=== PATIENT | female | born 1950 | race Hispanic/Latino ===

== ENCOUNTER 2017-07-31 10:26 | Outpatient (CLI) | payer MEDICARE ==
[2017-07-31 11:39] LABS: #Basophils 0.1 thou/uL (0.0-0.2); #Eosinphils 0.2 thou/uL (0.0-0.7); #Lymphocytes 1.5 thou/uL (1.20-3.40); #Monocytes 0.5 thou/uL (0.11-0.59); #Neutrophils 5.8 thou/uL (1.40-6.50); %Basophils 0.7 % (0.0-1.0); %Eosinophils 2.7 % (0.0-10.0); %Lymphocytes 18.8 % (21.0-51.0); %Neutrophils 71.8 % (42.0-75.0); Hemoglobin 11.5 g/dL (12.0-16.0); Mean Corpuscular HGB CONC 32.5 g/dL (32.0-36.0); Mean Corpuscular Hemoglobin 30.3 pg (27.0-31.0); Mean Corpuscular Volume 93.1 fl (81.0-99.0); Mean Platelet Volume 7.6 fL (7.4-10.4); Platelet Count 323 thou/uL (130-400); Red Blood Cell (RBC) Count 3.81 mill/uL (4.20-5.40); White Blood Cell (WBC) Count 8.1 thou/uL (4.8-10.8)
[2017-07-31 11:55] LABS: Anion Gap 10 mmol/L (10-20); BUN (Urea Nitrogen) 18 mg/dL (9.8-20.1); Calc. Creatinine Clearance 0 mL/min (70-130); Calcium 8.4 mg/dL (7.8-10.44); Carbon Dioxide 27 mmol/L (23-31); Chloride 108 mmol/L (98-107); Estimated GFR-MDRD 70; Glucose 175 mg/dL (80-115); Potassium 4.5 mmol/L (3.5-5.1); Sodium 140 mmol/L (136-145)
== END 2017-07-31 10:27 | disposition home or self-care (01) ==
LOC: LABBT 10:26
PROVIDERS: ATTEND Surgery
DX: Z01.812 Encounter for preprocedural laboratory examination (principal); K43.2 Incisional hernia without obstruction or gangrene
CPT/HCPCS: 80048; 85025

== ENCOUNTER 2017-08-08 11:25 | Day surgery (SDC) | payer MEDICARE ==
[2017-07-31 11:01] VITALS: BMI 23.8
[2017-08-08] MEDS ORDERED: CEFAZOLIN/Water 2 GM/20 ML SYRINGE ONE (11:44)
[2017-08-08] MEDS ORDERED: Midazolam HCl 2 mg/2 ml Vial ONE (13:12)
[2017-08-08] MEDS ORDERED: Fentanyl 250 MCG/5 ML VIAL ONE ×2 (13:18→16:51)
[2017-08-08] MEDS ORDERED: Bupivacaine/Epinephrine 0.25% 30 ML VIAL ONE (13:19)
[2017-08-08] MEDS ORDERED: hydrALAZINE 20 MG/ML VIAL ONE (16:06)
[2017-08-08] MEDS ORDERED: Ondansetron HCl/PF 4 MG/2 ML Vial ONE (18:34)
[2017-08-08] MEDS ORDERED: HYDROcodone/Acetaminophen 5/325 mg Tablet ONE (18:47)
[2017-08-08] MEDS ORDERED: Ketorolac Tromethamine 30 MG/ML VIAL ONE (19:33)
--- NOTE | 2017-08-08 21:58 | OP ---
PREOPERATIVE DIAGNOSIS: Incisional hernia. POSTOPERATIVE DIAGNOSIS: Incisional hernia. PROCEDURE PERFORMED: Incisional hernia repair with mesh, Symbotex, 12 cm. SURGEON: Boone Davenport M.D. ANESTHESIA: General. ESTIMATED BLOOD LOSS: Minimal. COMPLICATIONS: None. FINDINGS: Hernia at the former colostomy site and in the midline of the previous incision. TECHNIQUE: The patient was taken to the operating room and laid supine on the table. After general anesthetic was obtained, the Foster was placed. The abdomen was prepped and draped in a sterile fashi on. Left subcostal 12 mm Optiview trocar was placed in the usual fashion without injury and high-pernell w pneumoperitoneum was obtained. Right lateral subcostal 12 mm Ethicon trocar in right lower quadran t, 8 mm robot trocar, all placed under direct visualization. A few adhesions were taken down in the abdomen using sharp dissection only. All ports were docked to the robot. Surgeon goes to the consol e. Some adhesions were taken down in the abdomen in the area of the hernia using the sharp scissors. After the adhesions were taken down, the peritoneum was taken down to expose the edges of the fasci al defect in the left abdomen at location of previous hernia. This was very close to another hernia in the midline of the former midline incision. A #1 V-Loc was used to close the fascial defect prima rily. A second short V-Loc was used to close the midline incisional defect. A 12 cm piece of Symbot ex mesh was brought in to the abdominal cavity and held to the posterior abdominal wall using the nee dle from the previous closure. A 3-0 bidirectional double arm Stratafix was used to sew the mesh to the posterior fascia circumferentially. This covered both the colostomy and the midline defects. Th e nonadherent surface of the mesh was placed anterior against the posterior fascia, centered over the closure defects. There was no injury to any intraabdominal structures. All needles were withdrawn from the abdomen and accounted for. GraNee needle was used to close the fascial defect from the 12-m m trocar site. All port sites were infiltrated using local anesthetic. All ports are closed using 4 -0 Monocryl and Dermabond. The patient was en route to recovery in stable condition. All instrument counts, needle counts, lap counts were correct.
--- NOTE | 2017-08-09 17:41 | EKG ---
Test Reason : PREOP Blood Pressure : / mmHG Vent. Rate : 063 BPM Atrial Rate : 063 BPM P-R Int : 150 ms QRS Dur : 082 ms QT Int : 422 ms P-R-T Axes : 044 022 068 degrees QTc Int : 431 ms Normal sinus rhythm Normal ECG When compared with ECG of 07-JAN-2016 14:16, No significant change was found Confirmed by DR. Ronny BERNSTEIN ([id number]) on 08/09/2017 5:41:46 PM Referred By: TONY Confirmed By:DR. Ronny BERNSTEIN
== END 2017-08-08 19:50 | disposition home or self-care (01) ==
LOC: SDC 11:25
PROVIDERS: ATTEND Surgery
PROC: 0WUF4JZ Supplement Abdominal Wall with Synthetic Substitute, Percutaneous Endoscopic Approach (ICD-10-PCS; principal; 2017-08-08)
DX: K43.2 Incisional hernia without obstruction or gangrene (principal); I10 Essential (primary) hypertension; E11.3591 Type 2 diabetes mellitus with proliferative diabetic retinopathy without macular edema, right eye; Z79.82 Long term (current) use of aspirin; Z79.84 Long term (current) use of oral hypoglycemic drugs; Z79.899 Other long term (current) drug therapy; Z90.49 Acquired absence of other specified parts of digestive tract; Z98.890 Other specified postprocedural states
CPT/HCPCS: 93005; 93010; 96374; 96375; J0360; J1885; J2250; J2405; J3010

== ENCOUNTER 2018-03-07 14:23 | Outpatient (CLI) | payer MEDICARE ==
--- NOTE | 2018-03-07 18:06 | ULT ---
BILATERAL RENAL ULTRASOUND: Date: 03/07/18 HISTORY: Chronic kidney disease. Hypertension. COMPARISON: None. FINDINGS: Incidental gallstones are noted. Bilaterally, no hydronephrosis. Anechoic focus in the mid right renal pelvis, compatible with a parapelvic cyst measuring 1.1 x 1.2 x 1.2 cm. There is a second cyst in the lower pole of the left kidney measuring 1.2 x 0.9 x 0.8 cm. Right kidney measures 10.4 x 5.1 x 5.0 cm. Left kidney measures 10.5 x 5.6 x 5.7 cm. No obvious corti antoni masses. Urinary bladder is unremarkable. IMPRESSION: 1. Limited evaluation of the right kidney. No obvious solid or cortical masses. Left renal cysts are noted. 2. No evidence of hydronephrosis. 3. Sonographic evidence of cholelithiasis. Evaluation is incomplete. If there is concern for cholecy stitis, dedicated gallbladder ultrasound is recommended. POS: JOSEPHINE
== END 2018-03-07 14:24 | disposition home or self-care (01) ==
LOC: BICULT 14:23
PROVIDERS: ATTEND Internal Medicine Nephrology
DX: I12.9 Hypertensive chronic kidney disease with stage 1 through stage 4 chronic kidney disease, or unspecified chronic kidney disease (principal); N18.3 Chronic kidney disease, stage 3 (moderate); N28.1 Cyst of kidney, acquired; K80.20 Calculus of gallbladder without cholecystitis without obstruction
CPT/HCPCS: 76770

== ENCOUNTER 2019-01-02 09:43 | Day surgery (SDC) | payer MEDICARE ==
[2018-12-25 08:40] VITALS: BMI 23.4
[~2019-01-02 09:43] MED LIST: EPINEPHrine 0.3 MG in Ophthalmic Irrigation Solution 500 ML IVP SCH
[2019-01-02] MEDS ORDERED: Phenylephrine 2.5% Ophth Soln 5 ML BOT ONE (10:04)
[2019-01-02] MEDS ORDERED: Cyclopentolate 1% Opth Drop 2 ML BOT ONE (10:04)
[2019-01-02] MEDS ORDERED: PROPOFOL 20 ML ONE (12:14)
[2019-01-02] MEDS ORDERED: Midazolam HCl 2 mg/2 ml Vial ONE ×2 (12:14→12:21)
--- NOTE | 2019-01-02 14:20 | OP ---
DATE OF PROCEDURE: 01/02/2019 PREOPERATIVE DIAGNOSES: 1. Glaucoma, left eye. 2. Epiretinal membrane, tractional retinal detachment. POSTOPERATIVE DIAGNOSES: 1. Glaucoma, left eye. 2. Epiretinal membrane, tractional retinal detachment. PROCEDURE PERFORMED: Pars plana vitrectomy, membrane peel, tube shunt to external valve, scleral patch graft, left eye. ANESTHESIA: Local with monitored anesthesia care. PROCEDURE IN DETAIL: The patient was identified in the preoperative holding area. Appropriate informed consent for the planned surgical procedure on the left eye had been obtained. The patient was transported to the operative suite, where appropriate cardiopulmonary monitoring was established. Local anesthesia was obtained using retrobulbar or modified Van Lint lid block using 50:50 mixture of 4% lidocaine and 0.75% bupivacaine. The patient was prepped and draped in usual sterile manner for ophthalmic surgery. Left eye lid speculum was placed in the left eye. A 25-gauge trocar was placed in conjunctiva and sclera supratemporally, inferotemporally, supranasally. Infusion line was placed inferotemporally. Light pipe vitreous cutter inserted to the eye. Core vitrectomy was performed. Proliferans was present on the surface. Posterior hyaloid face was elevated and vitreous was peeled from the macula, and into the periphery, proliferative membranes were dissected from the retinal surface and peeled away from the nerve. Small area of proliferans inferiorly was left. There was no evidence of traction. Panretinal photocoagulation for a total of 812 spots was placed on non-macular areas of the retina and FP7 tube shunt was placed subconjunctivally, superior temporally, and introduced into the supratemporal sclerotomy 4 mm posterior to the limbus. Tutoplast patch graft was placed over the entry site of the tube and covered with conjunctiva. Conjunctiva was sutured closed with 6-0 plain gut suture. Retrobulbar Kenalog sequential Ancef was placed. Antibiotic ointment placed. Eye was patched and shielded. The patient was taken to postop recovery unit in good condition having suffered no immediate perioperative complications. The patient was instructed to keep patch and shield on, avoid lifting or bending. Followup appointment with Dr. Mendez. Job ID: [id number]
== END 2019-01-02 14:40 | disposition home or self-care (01) ==
LOC: SDC 09:43
PROVIDERS: ATTEND Ophthalmology Retina Specialist
PROC: 08T53ZZ Resection of Left Vitreous, Percutaneous Approach (ICD-10-PCS; principal; 2019-01-02)
PROC: 08NF3ZZ Release Left Retina, Percutaneous Approach (ICD-10-PCS; 2019-01-02)
PROC: 08133J4 Bypass Left Anterior Chamber to Sclera with Synthetic Substitute, Percutaneous Approach (ICD-10-PCS; 2019-01-02)
DX: H33.42 Traction detachment of retina, left eye (principal); H40.9 Unspecified glaucoma; H43.12 Vitreous hemorrhage, left eye; Z79.899 Other long term (current) drug therapy; Z98.890 Other specified postprocedural states
CPT/HCPCS: 66180; 67113; L8612; J0171; J2250; J2704

== ENCOUNTER 2019-03-06 15:12 | Outpatient (CLI) | payer MEDICARE ==
--- NOTE | 2019-03-07 08:49 | MMO ---
Bilateral MAMMO Bilat Screen [facility]DI[facility]UAN C. CLINICAL HISTORY: Patient is 68 years old and is seen for screening. The patient has no family history of breast cancer. The patient has no personal history of cancer. VIEWS: The views performed were: bilateral craniocaudal with tomosynthesis and bilateral mediolateral oblique with tomosynthesis. FILMS COMPARED: The present examination has been compared to a prior imaging study performed at [facility] on 05/23/2016. This study has been interpreted with the assistance of computer-aided detection. MAMMOGRAM FINDINGS: There are scattered fibroglandular densities. There are no suspicious masses, suspicious calcifications, or new areas of architectural distortion. IMPRESSION: THERE IS NO MAMMOGRAPHIC EVIDENCE OF MALIGNANCY. A ROUTINE FOLLOW-UP MAMMOGRAM IN 1 YEAR IS RECOMMENDED. THE RESULTS OF THIS EXAM WERE SENT TO THE PATIENT. ACR BI-RADS Category 1 - Negative MAMMOGRAPHY NOTE: 1. A negative mammogram report should not delay a biopsy if a dominant of clinically suspicious mass is present. 2. Approximately 10% to 15% of breast cancers are not detected by mammography. 3. Adenosis and dense breasts may obscure an underlying neoplasm. Reported by: Tyson ORELLANA Electonically Signed: [id number]
== END 2019-03-06 15:13 | disposition home or self-care (01) ==
LOC: BICMAMMO 15:12
PROVIDERS: ATTEND Family Medicine
DX: Z12.31 Encounter for screening mammogram for malignant neoplasm of breast (principal)
CPT/HCPCS: 77063; 77067

== ENCOUNTER 2019-03-09 20:01 | Inpatient (IN) | payer MEDICARE ==
[2019-03-09] MEDS ORDERED: Morphine 4 MG/ML VIAL ONE ×2 (20:43→21:30)
[2019-03-09 21:08] LABS: #Basophils 0.1 thou/uL (0.0-0.2); #Lymphocytes 1.8 thou/uL (1.20-3.40); #Monocytes 0.8 thou/uL (0.11-0.59); #Neutrophils 9.5 thou/uL (1.40-6.50); %Basophils 0.5 % (0.0-1.0); %Eosinophils 0.3 % (0.0-10.0); %Lymphocytes 14.4 % (21.0-51.0); %Monocytes 6.9 % (0.0-10.0); %Neutrophils 77.9 % (42.0-75.0); Hemoglobin 9.2 g/dL (12.0-16.0); Mean Corpuscular Hemoglobin 30.7 pg (27.0-31.0); Mean Corpuscular Volume 90.4 fL (78.0-98.0); Mean Platelet Volume 7.2 fL (7.4-10.4); Platelet Count 320 thou/uL (130-400); RBC Distribution Width 11.4 % (11.5-14.5); Red Blood Cell (RBC) Count 2.99 mill/uL (4.20-5.40); White Blood Cell (WBC) Count 12.2 thou/uL (4.8-10.8)
[2019-03-09 21:17] LABS: Prothrombin Time 13.4 SEC (12.0-14.7)
[2019-03-09 21:31] LABS: ALT (SGPT) 10 U/L (8-55); AST (SGOT) 15 U/L (5-34); Albumin 2.8 g/dL (3.4-4.8); Alkaline Phosphatase 129 U/L (40-110); Anion Gap 10 mmol/L (10-20); BUN (Urea Nitrogen) 38 mg/dL (9.8-20.1); Bilirubin, Total 0.3 mg/dL (0.2-1.2); Calc. Creatinine Clearance 0 mL/min (70-130); Calcium 7.7 mg/dL (7.8-10.44); Carbon Dioxide 25 mmol/L (23-31); Chloride 109 mmol/L (98-107); Estimated GFR-MDRD 40; Globulin 3.4 g/dL (2.4-3.5); Glucose 134 mg/dL (80-115); Potassium 3.7 mmol/L (3.5-5.1); Protein, Total 6.2 g/dL (6.0-8.3); Sodium 140 mmol/L (136-145)
--- NOTE | 2019-03-09 21:44 | RAD ---
PORTABLE CHEST: History: Fall. FINDINGS: Lungs are clear. Heart and mediastinum unremarkable. Osseous structures appear intact. IMPRESSION: No acute findings. POS: OFF
--- NOTE | 2019-03-09 21:45 | RAD ---
LEFT HIP TWO VIEWS: History: Fall with injury. IMPRESSION: Comminuted displaced intertrochanteric fracture left hip. POS: OFF
--- NOTE | 2019-03-09 21:45 | RAD ---
LEFT FEMUR FOUR VIEWS: History: Injury. Fall. FINDINGS: There is a comminuted displaced intertrochanteric fracture of the proximal left femur. The distal femur appears intact. IMPRESSION: Fracture proximal left femur. POS: OFF
--- NOTE | 2019-03-09 21:46 | RAD ---
LEFT TIBIA/FIBULA FOUR VIEWS: History: Fall with injury. FINDINGS: No evidence of acute fracture. IMPRESSION: No acute findings. POS: OFF
[2019-03-09] MEDS ORDERED: Acetaminophen 1,000 MG in Premix Bag 1 BAG IVPB SCH (23:00)
--- NOTE | 2019-03-09 23:54 | CON ---
DATE OF CONSULTATION: 03/09/2019 CHIEF COMPLAINT: Left hip pain. HISTORY OF PRESENT ILLNESS: Ms. Lee is a pleasant 68-year-old female with history of being legally blind and cataracts, who presents complaining of left hip pain. The patient fell today. She is ambulating. She is a household ambulator, predominantly fell because of her impaired eyesight. She had left hip pain this morning at about 1100 hours. She was brought in secondary to this increasing pain. The patient presents with her son at bedside. PAST MEDICAL HISTORY: Includes glaucoma, hyperlipidemia, high cholesterol, hypertension, diabetes, history of chronic UTIs. PAST SURGICAL HISTORY: Hysterectomy, colostomy, history of PICC line. MEDICATIONS: Include: 1. Losartan-hydrochlorothiazide. 2. Pravastatin. 3. Combigan. 4. Lumigan. ALLERGIES: NO KNOWN DRUG ALLERGIES. SOCIAL HISTORY: Nonsmoker, nondrinker. No alcohol. Lives with her . Her son is at bedside. REVIEW OF SYSTEMS: Noncontributory. PHYSICAL EXAMINATION: VITAL SIGNS: 155/66, 74, 19, 98.8 temp, pain 7 to 10/10, 98% on room air. GENERAL: Alert and oriented female, in no acute distress, resting comfortably in bed. EXTREMITIES: The patient's left lower extremity is short and externally rotated. She has no effusion. She has brisk cap refill. She has palpable dorsalis pedis. The patient's sensation and motor intact distally. Pain with external rotation of her hip. Pelvis stable. LABORATORY DATA: The patient's creatinine is 1.39. She has a glucose of 134. The patient's INR is 1. Her H and H are 9.2 and 27. The patient's x-rays of her tibia show no acute fracture, femur show osteopenia with a left three part intertrochanteric hip fracture. IMPRESSION: 1. Left intertrochanteric hip fracture. 2. Diabetes. 3. Anemia. 4. Hypertension. 5. Legally blind. 6. Legally blind/glaucoma. 7. Hypercholesterolemia. ASSESSMENT AND PLAN: The patient will need a short TFNA nail that will be performed tomorrow once medically cleared. The patient will be placed tomorrow in the afternoon. I discussed with the patient that she will receive antibiotics for. I have discussed the risks and benefits of surgery including pain, scar, bleeding, infection, damage to vital structures, decreased range of motion and strength, fracture above or below the implant, need for further surgeries, loss of mobility, loss of life, limb, and discussed mortality associated with hip fractures to include 37% in females. I discussed with the patient reduced level of ambulatory function. They understand these risks and benefits. The patient elects to proceed. We will proceed tomorrow once stabilized and cleared per Trauma. Job ID: [id number]
[2019-03-10] MEDS ORDERED: Dextrose 5% in Water 1,000 ML IV PRN (00:12)
[2019-03-10] MEDS ORDERED: Ondansetron ODT 4 MG TAB PO PRN (00:12)
[2019-03-10] MEDS ORDERED: Dextrose 50% Abboject 50 ML SYRINGE SLOW IVP PRN (00:12)
[2019-03-10] MEDS ORDERED: traMADol HCl 50 MG TAB PO PRN (00:12)
[2019-03-10] MEDS ORDERED: Morphine 2 MG/ML SYRINGE SLOW IVP PRN (00:12)
[2019-03-10] MEDS ORDERED: Insulin Regular 300 UNITS/3 ML VIAL SC PRN (00:17)
--- NOTE | 2019-03-10 00:59 | HP ---
This is Robin Aguero PA-C dictating a report for Elkin Jonathan Fields DO. REQUESTING PHYSICIAN: Dr. Solis. ATTENDING SURGEON: Dr. Fields. CONSULTATION: Orthopedics, Dr. Ohara. HISTORY OF PRESENT ILLNESS: The patient is a 68-year-old woman, who had a ground level fall today. Family reports that she does not use her walker and that she is legally blind due to cataracts that she likely tripped over something in her house. She was brought to the emergency department by ground EMS, and underwent evaluation and examination and was noted to have a left hip fracture at which time we were asked to evaluate the patient for admission and obtain Orthopedic consultations. ALLERGIES: NONE. CURRENT MEDICATIONS: 1. Losartan-hydrochlorothiazide. 2. Pravastatin. 3. Combigan. 4. Lumigan. PAST MEDICAL HISTORY: Glaucoma, cataracts, hyperlipidemia, diabetes, hypertension. SURGICAL HISTORY: Hysterectomy, colostomy. SOCIAL HISTORY: The patient lives with her spouse at home. Denies drug, tobacco, or alcohol use. REVIEW OF SYSTEMS: 10-point review of systems is negative as otherwise stated. PHYSICAL EXAMINATION: VITAL SIGNS: Blood pressure 178/72, heart rate 72, respirations 18, oxygen saturations 98% on room air, and temperature is 98.8. GENERAL: The patient is resting comfortably in bed. She appears in no distress. She is awake, alert x3. Cass Coma Scale is 15. HEENT: Head is normocephalic and atraumatic. Eyes, the patient is able to distinguish light and movement. Pupils are marginally reactive which is consistent with her glaucoma and cataracts. Ears are atraumatic without discharge. Nose is atraumatic without discharge. Oropharynx is clear. NECK: Nontender. Trachea is midline. No JVD. CHEST: Clear to auscultation with good inspiratory and expiratory effort. HEART: Regular rate and rhythm. ABDOMEN: Soft, nontender with active bowel sounds. PELVIS: Stable with tenderness to palpation to the left hip consistent with her fracture. EXTREMITIES: Neurovascularly intact x4. BACK: By report is atraumatic and nontender. LABORATORY FINDINGS: WBC is 12.2, hemoglobin 9.2, hematocrit 27.0, platelets 320. Sodium 140, potassium 3.7, chloride 109, CO2 of 25, BUN 38, creatinine 1.31, glucose 134. LFTs are unremarkable. Alkaline phosphatase is slightly elevated at 129, PT 13.4, INR 1.0. RADIOGRAPHIC REPORTS: AP chest x-ray shows no acute findings. Views of the left hip show a comminuted displaced intertrochanteric fracture of the hip. Views of the left femur again show a fracture of the proximal left femur. Views of the left tibia and fibula show no acute findings. ASSESSMENT AND PLAN: 1. Status post ground level fall. 2. Left intertrochanteric hip fracture. 3. History of diabetes. 4. Chronic anemia. 5. History of hypertension. 6. History of hypercholesterolemia. 7. Legally blind due to glaucoma and cataracts. Plan will be to admit the patient to the surgical floor. Make her n.p.o. after midnight. IV hydration, pain control, pulmonary toilet, gastritis, and mechanical VTE prophylaxis. The patient will have a sliding scale insulin for glucose control postoperatively. We will give physical and occupational therapy and discuss placement at that time. The evaluation and examination were done in the emergency department with Dr. Fields and the patient was examined and consented by Dr. Ohara of Orthopedics. Job ID: [id number]
[2019-03-10] MEDS: Sodium Chloride 0.9% 1,000 ML IV SCH ×3 (01:00→17:54)
[2019-03-10 01:05] VITALS: BMI 24.4
[2019-03-10] MEDS: Acetaminophen 1,000 MG in Premix Bag 1 BAG IVPB SCH ×3 (05:07→17:54)
[2019-03-10] MEDS: Insulin Regular 300 UNITS/3 ML VIAL SC PRN (05:49)
[2019-03-10 05:51] LABS: #Eosinphils 0.1 thou/uL (0.0-0.7); #Lymphocytes 1.8 thou/uL (1.20-3.40); #Monocytes 0.8 thou/uL (0.11-0.59); #Neutrophils 7.5 thou/uL (1.40-6.50); %Basophils 0.1 % (0.0-1.0); %Lymphocytes 17.4 % (21.0-51.0); %Monocytes 7.8 % (0.0-10.0); %Neutrophils 73.6 % (42.0-75.0); Hemoglobin 9.2 g/dL (12.0-16.0); Mean Corpuscular Hemoglobin 30.9 pg (27.0-31.0); Mean Platelet Volume 7.4 fL (7.4-10.4); Platelet Count 292 thou/uL (130-400); RBC Distribution Width 11.5 % (11.5-14.5); Red Blood Cell (RBC) Count 2.97 mill/uL (4.20-5.40); White Blood Cell (WBC) Count 10.1 thou/uL (4.8-10.8)
[2019-03-10 06:03] LABS: Anion Gap 10 mmol/L (10-20); BUN (Urea Nitrogen) 32 mg/dL (9.8-20.1); Calc. Creatinine Clearance 41 mL/min (70-130); Calcium 7.9 mg/dL (7.8-10.44); Carbon Dioxide 26 mmol/L (23-31); Chloride 108 mmol/L (98-107); Estimated GFR-MDRD 47; Glucose 189 mg/dL (80-115); Potassium 4.3 mmol/L (3.5-5.1); Sodium 140 mmol/L (136-145)
[2019-03-10] MEDS: Morphine 4 MG/ML VIAL SLOW IVP PRN ×2 (06:15→20:16)
[2019-03-10] MEDS ORDERED: Tranexamic Acid 1,000 MG in Sodium Chloride 0.9% 250 ML 250 ML IVPB SCH (07:30)
[2019-03-10] MEDS ORDERED: CEFAZOLIN 2 GM in Premix Bag 1 BAG IVPB SCH (07:30)
[2019-03-10] MEDS ORDERED: FLU VACC TS2019-20(65YR UP)/PF 180 MCG/0.5 ML SYRINGE IM ONE (09:00)
[2019-03-10] MEDS: Ondansetron PF 4 MG/2 ML Vial IVP PRN (09:09)
[2019-03-10] MEDS: Timolol 0.5% Ophth Soln 5 ml Bottle L EYE SCH ×2 (09:09→20:21)
[2019-03-10] MEDS: Brimonidine Tartrate 0.2% Ophth Soln 5 ml Bottle L EYE SCH ×2 (09:11→20:19)
[2019-03-10] MEDS: Amlodipine 5 MG TAB PO SCH (09:16)
[2019-03-10] MEDS: Famotidine 20 MG TAB PO SCH (09:18)
[2019-03-10] MEDS: Simvastatin 5 MG TAB PO SCH (09:18)
[2019-03-10] MEDS ORDERED: Tranexamic Acid 1,000 MG/10 ML VIAL ONE (12:08)
[2019-03-10] MEDS ORDERED: Sodium Chloride 0.9% 100 ML ONE (12:09)
[2019-03-10] MEDS ORDERED: Morphine 4 MG/ML VIAL ONE (12:19)
[2019-03-10] MEDS ORDERED: Dexamethasone 20 MG/5 ML VIAL ONE (12:43)
[2019-03-10] MEDS ORDERED: Lidocaine 1% PF 5 ML VIAL ONE (12:43)
[2019-03-10] MEDS ORDERED: PROPOFOL 200 MG/20 ML VIAL ONE (12:43)
[2019-03-10] MEDS ORDERED: Glycopyrrolate 0.2 MG/ML 5 ML SYRINGE ONE (12:43)
[2019-03-10] MEDS ORDERED: Ondansetron PF 4 MG/2 ML Vial ONE (12:43)
[2019-03-10] MEDS ORDERED: Naloxone HCl 0.4 mg/ml Vial ONE (12:43)
[2019-03-10] MEDS ORDERED: Succinylcholine Chloride 20 MG/ML 10 ml SYRINGE FS ONE (12:43)
[2019-03-10] MEDS ORDERED: Rocuronium Bromide 10 MG/ML (10ML VIAL) ONE (12:43)
[2019-03-10] MEDS ORDERED: ePHEDrine 50 MG/ML VIAL ONE (12:43)
[2019-03-10] MEDS ORDERED: Lidocaine 2% Jelly 5 ML TUBE ONE (12:49)
[2019-03-10] MEDS ORDERED: Fentanyl 100 MCG/2 ML VIAL ONE (12:49)
--- NOTE | 2019-03-10 14:20 | PRG ---
DATE OF SERVICE: 03/10/2019 SUBJECTIVE: Ms. Lee is 68-year-old female with history of diabetes, glaucoma, hypertension, cataracts, legally blind, chronic anemia. She sustained left hip fracture. She will go to the OR for left hip fracture ORIF with Orthopedic today. The patient is lying down in bed with no acute respiratory distress. Pain is well controlled. Vital signs are stable. No overnight event last night. OBJECTIVE: GENERAL: The patient lying down in bed with no acute respiratory distress. VITAL SIGNS: Temperature 97, heart rate 72, respiratory rate 20, O2 saturation 95% on room air, blood pressure 189/76. LUNGS: Clear bilaterally. HEART: Regular rate and rhythm. ABDOMEN: Soft, nondistended. EXTREMITIES: Neurovascularly intact x4. SKIN: The patient has dermatitis in the creases of natural fold of her body. ASSESSMENT: 1. Status post ground level fall. 2. Left hip fracture. 3. History of legally blind due to cataracts and glaucoma. 4. History of hypertension, diabetes. 5. Skin dermatitis, fungal dermatitis. PLAN: Will be continue supportive care. Continue pain control. The patient will go to the OR with Orthopedics for ORIF of left hip fracture today. We will treat the fungal dermatitis after the patient is back from the OR. After ORIF of left hip fracture, the patient will be working with PT/OT. The patient will have pharmacological DVT prophylaxis. Anticipate placement in rehabilitation facility. The patient was seen and evaluated with Dr. Fields on round this morning. Job ID: [id number]
[2019-03-10] MEDS ORDERED: Cepastat Lozenges 1 LOZ PO PRN (14:48)
[2019-03-10] MEDS ORDERED: Bisacodyl 10 MG SUPP PR PRN (14:48)
[2019-03-10] MEDS ORDERED: Fleet Enema 133 ML BOT PR PRN (14:48)
[2019-03-10] MEDS ORDERED: Ondansetron HCl/PF 4 MG/2 ML Vial IVP PRN (15:03)
[2019-03-10] MEDS ORDERED: Promethazine HCl 25 MG/ML VIAL IM PRN (15:03)
[2019-03-10] MEDS ORDERED: Promethazine HCl 25 MG/ML VIAL SLOW IVP PRN (15:03)
--- NOTE | 2019-03-10 15:09 | RAD ---
Left hip 2 views intraoperative fluoroscopy HISTORY: Fracture. FINDINGS: Intraoperative fluoroscopy was provided for internal fixation as performed by Dr. Hurtado . Spot fluoroscopic images show short medullary enoc and compression nail to transfix the left hip fracture. Anatomic alignment. Fluoroscopy time 105 seconds.
[2019-03-10] MEDS: Ferrous Sulfate 325 MG TAB PO SCH (17:54)
[2019-03-10] MEDS: Ascorbic Acid 500 mg Chewable Tablet PO SCH (17:54)
[2019-03-10] MEDS: Acetaminophen 500 MG TAB PO SCH (18:32)
[2019-03-10] MEDS: Ferrous Gluconate 324 MG TAB PO SCH (20:22)
[2019-03-10] MEDS: Gabapentin 300 MG CAP PO SCH (20:22)
[2019-03-10] MEDS: Senokot S 8.6-50 MG TAB PO SCH (20:22)
[2019-03-10] MEDS: Latanoprost 0.005% Ophth Soln 2.5 ml Bottle EA EYE SCH (20:26)
[2019-03-10] MEDS ORDERED: Senokot S 8.6-50 MG TAB PO SCH (21:00)
--- NOTE | 2019-03-10 22:12 | OP ---
DATE OF PROCEDURE: 03/10/2019 PREOPERATIVE DIAGNOSIS: Left intertrochanteric hip fracture. POSTOPERATIVE DIAGNOSIS: Left intertrochanteric hip fracture. PROCEDURE PERFORMED: Intermedullary nailing of left intertrochanteric fracture shaft. ASSISTANTS: Merrick Drake PA-C. ANESTHESIOLOGIST: Laura Pelaez MD ANESTHESIA: The patient received a general endotracheal anesthesia. ESTIMATED BLOOD LOSS: 100 mL. TOURNIQUET TIME: None. IMPLANTS: A 10 x 170 Synthes TFNA nail, 85 mm compression screw, 5-0 locking screw distally, Ancef 2 g, and TXA 1 g. COMPLICATIONS: None. HISTORY OF PRESENT ILLNESS: Mrs. Lee is a 68-year-old female who has bad vision, history of multiple medical problems who presents with a fall. The patient had a left intertrochanteric hip fracture. I discussed the risks and benefits of short trochanteric fixation nail to include pain, scar, bleeding, infection, damage to vital structures, decreased range of motion, strength, fracture above the stem, need for further surgeries, loss of life or limb, the patient understood these risks and benefits and elected to proceed. DESCRIPTION OF PROCEDURE: Time-out was performed designating the patient's left lower extremity as the operative site, based on site, consent, and marking. After time-out, the patient was intubated, had a Foster placed was transferred to the fracture table, was pulled and reduced under fluoroscopic guidance. After a time-out had been performed, skin was made and guide pin was placed in posterior 2/3 of the trochanter. I had to replace it twice to get into the position. I went ahead with opening reamer 14, given the canal that I need to ream up, because I have concerned even to get a 9 in. Then a 9 would be slightly tight. I reamed first with a 10, followed by 11 and then a 11.5, actually placed the 10 mm nail. The stem was snuggly fit. I placed into position, looked under fluoroscopic guidance, made a stab incision for the compression screw. We drilled under fluoroscopic guidance, assured that we were in a good tip apex distance, drilled and placed 85 mm screw. We compressed the fracture down. We took the gate down and released by it half, turned to allow to slide. We took the tripel trochar out and placed a distal locking screw of 32 mm drilling bicortically, good firm fix. We washed and we closed with 2-0 and jaqui. The patient received 24 hours of antibiotics. We contacted the admitting service trauma about the tinea noted throughout multiple sites in her skin. The patient will receive UA, then a check on her urine. Job ID: [id number] MTDD
[2019-03-10] MEDS ORDERED: Nystatin Powder 15 GM BOT TOP PRN (23:18)
[2019-03-11] MEDS: CEFAZOLIN 2 GM in Premix Bag 1 BAG IVPB SCH ×2 (00:45→08:13)
[2019-03-11] MEDS: Acetaminophen 500 MG TAB PO SCH ×4 (00:46→15:43)
[2019-03-11] MEDS: traMADol HCl 50 MG TAB PO PRN ×3 (04:09→15:41)
[2019-03-11 05:43] LABS: Hemoglobin 7.9 g/dL (12.0-16.0); Mean Corpuscular HGB CONC 32.7 g/dL (32.0-36.0); Mean Corpuscular Hemoglobin 30.4 pg (27.0-31.0); Mean Corpuscular Volume 93.2 fL (78.0-98.0); Mean Platelet Volume 7.5 fL (7.4-10.4); Platelet Count 281 thou/uL (130-400); RBC Distribution Width 11.5 % (11.5-14.5); Red Blood Cell (RBC) Count 2.59 mill/uL (4.20-5.40); White Blood Cell (WBC) Count 12.2 thou/uL (4.8-10.8)
[2019-03-11] MEDS: Insulin Regular 300 UNITS/3 ML VIAL SC PRN ×2 (06:05→11:57)
[2019-03-11] MEDS: Ondansetron PF 4 MG/2 ML Vial IVP PRN (08:08)
[2019-03-11] MEDS: Cyclobenzaprine 10 MG TAB PO PRN (08:08)
[2019-03-11] MEDS: Polyethylene Glycol 3350 17 GM Packet PO SCH (08:10)
[2019-03-11] MEDS: Ascorbic Acid 500 mg Chewable Tablet PO SCH ×2 (08:10→15:42)
[2019-03-11] MEDS: Gabapentin 300 MG CAP PO SCH ×2 (08:11→20:58)
[2019-03-11] MEDS: Simvastatin 5 MG TAB PO SCH (08:11)
[2019-03-11] MEDS: Multivitamin W/ Minerals 1 TAB PO SCH (08:12)
[2019-03-11] MEDS: Senokot S 8.6-50 MG TAB PO SCH ×2 (08:12→20:58)
[2019-03-11] MEDS: Ferrous Gluconate 324 MG TAB PO SCH (08:12)
[2019-03-11] MEDS: Famotidine 20 MG TAB PO SCH (08:12)
[2019-03-11] MEDS: Amlodipine 5 MG TAB PO SCH (08:12)
[2019-03-11] MEDS: Ferrous Sulfate 325 MG TAB PO SCH ×2 (08:13→15:42)
[2019-03-11] MEDS: Brimonidine Tartrate 0.2% Ophth Soln 5 ml Bottle L EYE SCH ×2 (08:13→20:58)
[2019-03-11] MEDS: Timolol 0.5% Ophth Soln 5 ml Bottle L EYE SCH ×2 (08:14→20:58)
[2019-03-11 08:52] LABS: Anion Gap 12 mmol/L (10-20); BUN (Urea Nitrogen) 22 mg/dL (9.8-20.1); Calc. Creatinine Clearance 42 mL/min (70-130); Calcium 7.9 mg/dL (7.8-10.44); Carbon Dioxide 20 mmol/L (23-31); Chloride 109 mmol/L (98-107); Estimated GFR-MDRD 48; Glucose 117 mg/dL (80-115); Magnesium 1.8 mg/dL (1.6-2.6); Phosphorus 3.4 mg/dL (2.3-4.7); Potassium 4.2 mmol/L (3.5-5.1); Sodium 137 mmol/L (136-145)
[2019-03-11] MEDS: Aspirin 81 mg Enteric Coated Tablet PO SCH ×2 (10:07→20:57)
--- NOTE | 2019-03-11 13:08 | PRG ---
DATE OF SERVICE: 03/11/2019 SUBJECTIVE: Jerilyn is a 68-year-old female with history of diabetes, glaucoma , hypertension, cataracts, legally blind, chronic anemia, and CKD, who presented status post mechanical fall from ground with left femur fracture/. She is now postoperative day #1 status post intramedullary nailing of left intertrochanteric fracture. She tolerated the procedure well with no acute events. This morning, the patient was in good spirits. Vital signs were stable. Of note, the patient was noted to have tinea in the mammary and other skin folds and thus was started on nystatin postoperatively. The patient currently has Foster in place with good urine output, clear and yellow. She is passing gas; however, has not had a bowel movement since surgery. While in the room this morning, the patient was beginning to stand with PT assistance and take a few steps. OBJECTIVE: VITAL SIGNS: Stable. Blood pressure 160s/70s. Afebrile. GENERAL: The patient was standing with Physical Therapy assistance, taking a few steps. AAO x3, in good spirits, in no acute distress. HEENT: Normocephalic and atraumatic. Trachea midline. NECK: Supple. LUNGS: Symmetric chest wall expansion. No increased work of breathing. EXTREMITIES: Neurovascularly intact x4. SKIN: Tinea in the mammary fold as well as natural folds of her abdomen. LABORATORY FINDINGS: Hemoglobin down to 7.9 from 9.2 preoperative, white blood cell count 12.2, and platelets of 281. ASSESSMENT: 1. Status post ground-level fall with left hip fracture. 2. Status post intermedullary nailing of left intertrochanteric fracture, postoperative day #1. 3. Legally blind secondary to cataracts and glaucoma. 4. History of hypertension, type 2 diabetes, chronic anemia, and chronic kidney disease. 5. Fungal dermatitis. PLAN: We will continue supportive care with continued pain control. The patient is postoperative day #1 from open reduction and internal fixation. The patient is beginning to ambulate with PT assistance. We will continue PT and rehab eval, appreciated recommendations. We will continue bowel regimen. GI prophylaxis discontinued due to the patient tolerating diet well. We will recheck labs in the morning as well as start DVT prophylaxis in the morning pending clinical course and stability of blood counts. We will continue PT and OT and rehab for likely rehab placement upon discharge. The patient was seen and examined by Dr. Fields on morning rounds. The plan was discussed with the patient at bedside, who voiced in agreement and understanding of the current plan. Job ID: [id number] [facility] DIVISIONRik
[2019-03-11] MEDS: Latanoprost 0.005% Ophth Soln 2.5 ml Bottle EA EYE SCH (21:02)
--- NOTE | 2019-03-11 23:42 | PRG ---
DATE OF SERVICE: 03/11/2019 SUBJECTIVE: The patient was seen this evening during rounds, resting comfortably and asleep with no signs of acute distress. She is postoperative day 1 after fixation of her left hip fracture. OBJECTIVE: VITAL SIGNS: Temperature 98.7, pulse 70, respirations 16, oxygen saturation 94% on room air, and blood pressure 152/74. GENERAL: Well-appearing elderly female, lying in bed with no signs of acute distress. The patient is resting comfortably and breathing normally. ASSESSMENT: 1. Status post mechanical fall from standing. 2. Left intertrochanteric femur fracture, status post repair. 3. History of blindness, hypertension, diabetes type 2, chronic anemia, chronic kidney disease, and fungal dermatitis. PLAN: Continue physical and occupational therapy. Continue current diet and pain regimen. The patient is currently on aspirin for DVT prophylaxis. She is pending placement at acute rehab facility. Job ID: [id number]
[2019-03-12] MEDS: Acetaminophen 500 MG TAB PO SCH ×5 (00:41→23:34)
[2019-03-12 04:51] LABS: Hemoglobin 6.9 g/dL (12.0-16.0); Mean Corpuscular HGB CONC 33.1 g/dL (32.0-36.0); Mean Corpuscular Hemoglobin 31.1 pg (27.0-31.0); Mean Corpuscular Volume 94.1 fL (78.0-98.0); Mean Platelet Volume 7.8 fL (7.4-10.4); Platelet Count 242 thou/uL (130-400); RBC Distribution Width 11.6 % (11.5-14.5); Red Blood Cell (RBC) Count 2.23 mill/uL (4.20-5.40); White Blood Cell (WBC) Count 8.4 thou/uL (4.8-10.8)
[2019-03-12] MEDS: Ascorbic Acid 500 mg Chewable Tablet PO SCH ×2 (08:13→16:35)
[2019-03-12] MEDS: Ferrous Sulfate 325 MG TAB PO SCH ×2 (08:13→16:34)
[2019-03-12] MEDS: Multivitamin W/ Minerals 1 TAB PO SCH (08:15)
[2019-03-12] MEDS: Simvastatin 5 MG TAB PO SCH (08:15)
[2019-03-12] MEDS: Gabapentin 300 MG CAP PO SCH ×2 (08:16→20:23)
[2019-03-12] MEDS: Senokot S 8.6-50 MG TAB PO SCH ×2 (08:16→20:23)
[2019-03-12] MEDS: Amlodipine 5 MG TAB PO SCH (08:17)
[2019-03-12] MEDS: Polyethylene Glycol 3350 17 GM Packet PO SCH (08:19)
[2019-03-12] MEDS: Timolol 0.5% Ophth Soln 5 ml Bottle L EYE SCH ×2 (09:03→20:24)
[2019-03-12] MEDS: Brimonidine Tartrate 0.2% Ophth Soln 5 ml Bottle L EYE SCH ×2 (09:07→20:23)
--- NOTE | 2019-03-12 11:37 | PRG ---
DATE OF SERVICE: 03/12/2019 SUBJECTIVE: The patient is doing very well this morning, resting comfortably in bed. She states that she was able to ambulate with physical therapy multiple times yesterday, taking a few steps with no nausea or dizziness. She is tolerating p.o. well without any nausea or vomiting. Pain is well controlled. She is passing gas, however, has not had a bowel movement. The patient and states that her vision loss is significant barrier to being able to ambulate safely at home and thus are in agreement for inpatient rehab for further strengthening prior to discharge home. The patient is currently postop day #2 after open reduction and internal fixation of the left hip. The patient denies any dizziness or lightheadedness upon standing. OBJECTIVE: VITAL SIGNS: Temperature 98.7, respiratory rate 16, O2 saturation 95% on room air, blood pressure 102/58, pulse 75. GENERAL: The patient is resting comfortably in bed, A and O x3, in no acute distress, in good spirits. NECK: Supple. Trachea midline. RESPIRATORY: Symmetric chest wall expansion. No acute respiratory distress. No increased work of breathing. LABORATORY DATA: White blood cell count 8.4, down from 12.2; platelets 242; hemoglobin 6.9, down from 9.2 on admission and 7.9 on 03/11/2019. ASSESSMENT: 1. Status post mechanical fall from standing. 2. Left intertrochanteric femur fracture, status post open reduction and internal fixation, postop day #2. 3. Legally blind 4. Hypertension. 5. Type 2 diabetes. 6. Chronic anemia. 7. Chronic kidney disease. 8. Fungal dermatitis. PLAN: Continue supportive care. Continue physical and occupational therapy. Continue diet regimen and bowel regimen. We will transfuse 1 unit packed red blood cells this morning due to drop in hemoglobin from 9.2 at admission to 6.9 today. Currently, holding DVT prophylaxis due to anemia. This will need to be restarted tomorrow. Aspirin 81 mg b.i.d. for VTE prophylaxis. She will also need a repeat hemoglobin tomorrow morning. She is currently pending placement at acute rehab facility. The patient was seen and examined by Dr. Fields on morning rounds. The above plan was discussed with the patient and at bedside, who were in agreement and understanding of the current plan with ultimate goal of discharge to inpatient rehab. Job ID: [id number] [email or web address]
[2019-03-12] MEDS: Insulin Regular 300 UNITS/3 ML VIAL SC PRN (12:38)
[2019-03-12] MEDS: traMADol HCl 50 MG TAB PO PRN (14:12)
[2019-03-12] MEDS: Cyclobenzaprine 10 MG TAB PO PRN (16:33)
[2019-03-12] MEDS: Latanoprost 0.005% Ophth Soln 2.5 ml Bottle EA EYE SCH (20:23)
[2019-03-12] MEDS: hydrALAZINE 20 MG/ML VIAL SLOW IVP PRN (23:35)
--- NOTE | 2019-03-13 01:01 | PRG ---
DATE OF SERVICE: 03/12/2019 SUBJECTIVE: The patient was seen this evening during rounds. She was hemodynamically stable and asleep at the time of my evaluation. She received 1 unit of packed red blood cells today for hemoglobin of 6.9. Since then, she has been hemodynamically stable and asymptomatic. OBJECTIVE: VITAL SIGNS: Temperature 98.1, pulse 75, respirations 16, oxygen saturation 97% on room air, blood pressure 163/68. GENERAL: Well-appearing elderly female, lying in bed with no signs of acute distress. PULMONARY: Equal chest rise and fall. No signs of acute respiratory distress. ASSESSMENT: 1. Status post mechanical fall from standing. 2. Left intertrochanteric femur fracture, status post repair. 3. 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 4. Acute blood loss anemia, stable. PLAN: Continue supportive care and physical and occupational therapy. We will repeat CBC in the morning to monitor the patient's hemoglobin. She did receive 1 unit of packed red blood cells during the day, there is no indication for further transfusion at this time. Continue current diet and pain regimen. Restart aspirin tomorrow morning if the patient continues with stable hemoglobins. She is pending placement at a rehab facility. Job ID: [id number]
[2019-03-13 04:26] LABS: Hemoglobin 8.4 g/dL (12.0-16.0); Mean Corpuscular HGB CONC 33.7 g/dL (32.0-36.0); Mean Corpuscular Volume 91.8 fL (78.0-98.0); Mean Platelet Volume 7.9 fL (7.4-10.4); Platelet Count 237 thou/uL (130-400); RBC Distribution Width 12.4 % (11.5-14.5); Red Blood Cell (RBC) Count 2.72 mill/uL (4.20-5.40); White Blood Cell (WBC) Count 9.1 thou/uL (4.8-10.8)
[2019-03-13] MEDS: Acetaminophen 500 MG TAB PO SCH ×4 (05:22→23:39)
[2019-03-13] MEDS ORDERED: Amlodipine 5 MG TAB PO SCH (06:37)
[2019-03-13] MEDS: hydrALAZINE 20 MG/ML VIAL SLOW IVP PRN (08:33)
[2019-03-13] MEDS: Multivitamin W/ Minerals 1 TAB PO SCH (08:41)
[2019-03-13] MEDS: Gabapentin 300 MG CAP PO SCH ×2 (08:41→21:06)
[2019-03-13] MEDS: Ascorbic Acid 500 mg Chewable Tablet PO SCH ×2 (08:41→16:29)
[2019-03-13] MEDS: Ferrous Sulfate 325 MG TAB PO SCH ×2 (08:41→16:29)
[2019-03-13] MEDS: Senokot S 8.6-50 MG TAB PO SCH ×2 (08:41→21:06)
[2019-03-13] MEDS: Amlodipine 10 MG TAB PO SCH (08:42)
[2019-03-13] MEDS: Simvastatin 5 MG TAB PO SCH (08:42)
[2019-03-13] MEDS: Aspirin Chewable 81 MG TAB PO SCH ×2 (08:42→21:03)
[2019-03-13] MEDS: Polyethylene Glycol 3350 17 GM Packet PO SCH (08:42)
[2019-03-13] MEDS: Timolol 0.5% Ophth Soln 5 ml Bottle L EYE SCH ×2 (08:43→21:04)
[2019-03-13] MEDS: Brimonidine Tartrate 0.2% Ophth Soln 5 ml Bottle L EYE SCH ×2 (08:43→21:04)
--- NOTE | 2019-03-13 10:43 | PRG ---
DATE OF SERVICE: 03/13/2019 SUBJECTIVE: Jerilyn is a 68-year-old female, postop day 3 from a left hip intertrochanteric fracture fixation. She received transfusion postop day two, which brought her hemoglobin up to 8.4. OBJECTIVE: GENERAL: She is resting well. She is alert, open, responsive, and appropriate with examiner. VITAL SIGNS: Appear stable. She is normotensive, may be a little hypertensive and heart rate of 68. EXTREMITIES: Incision is clean. No erythema. No strike through. No drainage. Leg lengths appear near equal. No shortening or rotation. IMPRESSION: Postop day 3, left hip intertrochanteric fixation with short trochanteric nail. PLAN: Continue current care, but she will need skilled facility. Job ID: [id number]
--- NOTE | 2019-03-13 11:03 | PRG ---
DATE OF SERVICE: 03/13/2019 SUBJECTIVE: The patient is doing well this morning with no acute concerns or complaints. Denies any fevers, chills, shortness of breath, or chest pain. She has had multiple bowel movements, urinating without difficulty. She was able to stand and take a few steps with physical therapy yesterday. She received 1 unit of packed red blood cells yesterday. Currently, she denies any dizziness, lightheadedness, nausea, or vomiting. She is tolerating p.o. well. Eager for discharge to rehab when available. OBJECTIVE: VITAL SIGNS: Temperature 97.8, pulse 68, blood pressure 158/68, respirations 14, and O2 saturation 98 on room air. GENERAL: Well-appearing female, sitting upright in bed, in no acute distress, in good spirits. RESPIRATORY: Symmetric chest wall expansion. No acute respiratory distress. No increased work of breathing. NECK: Supple. Trachea midline. LABORATORY DATA: White blood cell count 9.1; hemoglobin 8.4, improved from 6.9 yesterday; platelets 237. ASSESSMENT: 1. Status post mechanical fall from standing. 2. Left intertrochanteric femur fracture status post open reduction and internal fixation, postoperative day #3. 3. 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 4. Acute blood loss anemia, stable. PLAN: Plan will be to continue supportive care. Physical and occupational therapy. Hemoglobin stable post transfusion. Started on DVT prophylaxis of aspirin 81 mg b.i.d. Blood pressure has remained elevated during hospitalization. Thus, Norvasc increased from 5 mg to 10 mg daily. She can continue current diet and pain regimen. She is currently pending placement at acute rehab facility. The patient was seen and examined by Dr. Fields on morning rounds. Above plan was discussed with the patient and at bedside who are in agreement and understanding of the current plan with ultimate goal of discharge to inpatient rehab once bed available and insurance approves. Job ID: [id number]
[2019-03-13] MEDS: Insulin Regular 300 UNITS/3 ML VIAL SC PRN ×2 (12:25→16:30)
[2019-03-13] MEDS: Latanoprost 0.005% Ophth Soln 2.5 ml Bottle EA EYE SCH (21:05)
[2019-03-13] MEDS: traMADol HCl 50 MG TAB PO PRN (21:06)
--- NOTE | 2019-03-13 22:33 | PRG ---
DATE OF SERVICE: SUBJECTIVE: The patient was seen today during evening rounds. She was asleep and resting comfortably in bed with no signs of acute distress. Nursing reported no acute events. OBJECTIVE: VITAL SIGNS: Temperature 99, pulse 97, respirations 16, oxygen saturation 98% on room air, and blood pressure 157/70. GENERAL: Well-appearing elderly female, lying in bed with no signs of acute distress. PULMONARY: Equal chest rise and fall. No signs of acute respiratory distress. ASSESSMENT: 1. Status post mechanical fall from standing. 2. Left intertrochanteric femur fracture, status post repair. 3. 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 4. Acute blood loss anemia, improved. PLAN: Continue current diet and pain regimen. Continue physical and occupational therapy. The patient's home Norvasc was increased today and it appears to be working appropriately in controlling her blood pressure. The patient is pending discharge to [facility] tomorrow. Job ID: [id number]
[2019-03-14] MEDS: Acetaminophen 500 MG TAB PO SCH ×2 (06:57→11:55)
[2019-03-14] MEDS: Ascorbic Acid 500 mg Chewable Tablet PO SCH (08:33)
[2019-03-14] MEDS: Aspirin Chewable 81 MG TAB PO SCH (08:33)
[2019-03-14] MEDS: Ferrous Sulfate 325 MG TAB PO SCH (08:35)
[2019-03-14] MEDS: Simvastatin 5 MG TAB PO SCH (08:36)
[2019-03-14] MEDS: Senokot S 8.6-50 MG TAB PO SCH (08:37)
[2019-03-14] MEDS: Amlodipine 10 MG TAB PO SCH (08:38)
[2019-03-14] MEDS: Gabapentin 300 MG CAP PO SCH (08:38)
[2019-03-14] MEDS: Multivitamin W/ Minerals 1 TAB PO SCH (08:39)
[2019-03-14] MEDS: Timolol 0.5% Ophth Soln 5 ml Bottle L EYE SCH (08:40)
[2019-03-14] MEDS: Brimonidine Tartrate 0.2% Ophth Soln 5 ml Bottle L EYE SCH (08:40)
[2019-03-14 08:42] VITALS: BP 143/79
[2019-03-14 12:24] VITALS: TEMP 98.4
== END 2019-03-14 12:15 | DRG 481 ==
LOC: ERS 20:01 → SURG B 23:37
PROVIDERS: ADMIT Orthopaedic Surgery; ATTEND Orthopaedic Surgery
PROC: 0QS706Z Reposition Left Upper Femur with Intramedullary Internal Fixation Device, Open Approach (ICD-10-PCS; principal; 2019-03-10)
DX: S72.142A Displaced intertrochanteric fracture of left femur, initial encounter for closed fracture (principal); D62 Acute posthemorrhagic anemia; E78.5 Hyperlipidemia, unspecified; E78.00 Pure hypercholesterolemia, unspecified; H54.8 Legal blindness, as defined in USA; W01.0XXA Fall on same level from slipping, tripping and stumbling without subsequent striking against object, initial encounter; Y93.01 Activity, walking, marching and hiking; I12.9 Hypertensive chronic kidney disease with stage 1 through stage 4 chronic kidney disease, or unspecified chronic kidney disease; E11.22 Type 2 diabetes mellitus with diabetic chronic kidney disease; D63.1 Anemia in chronic kidney disease; B36.9 Superficial mycosis, unspecified; N18.9 Chronic kidney disease, unspecified; Z87.440 Personal history of urinary (tract) infections; Z90.710 Acquired absence of both cervix and uterus; Z93.3 Colostomy status; Z79.4 Long term (current) use of insulin
CPT/HCPCS: 36415; 36416; 36430; 71045; 76000; 80048; 80053; 83735; 84100; 85025; 85027; 85610; 86850; 86900; 86901; 90471; 90662; 93005; 96361; 96374; 96375; C1713; C1769; G0008; G0390; J0131; J0360; J0690; J1100; J1815; J2001; J2270; J2310; J2405; J2704; J3010; J3490; P9016